=== PATIENT | female | born 1955 | race Caucasian/White ===

== ENCOUNTER 2016-07-30 10:17 | Emergency (ER) | payer OTHER ==
[~2016-07-30] VITALS: Ht 162.6 cm; Wt 49.9 kg
[~2016-07-30 10:17] MED LIST: TOPIRAMATE25 MG PO; TYLENOL #31 TAB PO
[2016-07-30 10:21] VITALS: BP 125/76
--- NOTE | 2016-07-30 10:33 | ED INFLUENZA/URI COMPLAINT ---
History of Present Illness General Chief Complaint: Upper Respiratory Sx/Fever Stated Complaint: COUGH XS 2 WEEKS Source: patient Exam Limitations: no limitations Vital Signs & Intake/Output Vital Signs & Intake/Output Vital Signs Date Time Temp Pulse Resp B/P Pulse O2 O2 Flow FiO2 Ox Delivery Rate 07/30 1052 Room Air Room Air 07/30 1021 98.5 109 20 125/76 98 Room Air Allergies Coded Allergies: NO KNOWN ALLERGIES (11/12/11) Reconcile Medications Albuterol Sulfate (Ventolin Hfa) 90 MCG HFA.AER.AD 2 PUF INH Q4-6 PRN PRN SHORTNESS OF BREATH Amoxicillin/Potassium Clav (Amox-Clav 500-125 MG Tablet) 500 MG-125 MG TABLET 1 CAP PO BID BRONCHITIS Benzonatate (Tessalon Perle) 100 MG CAPSULE 1 CAP PO TID PRN COUGH Benzonatate (Tessalon Perle) 100 MG CAPSULE 1 CAP PO TID PRN COUGH Robitussin AC (Guaifenesin-Codeine Syrup) 200 MG-20 MG/10 ML LIQUID 10 ML PO TID PRN COUGH DO NOT OPERATE MOTOR VEHICLES WITH THIS MEDICATION Topiramate 25 MG TABLET 2 TAB PO DAILY MIGRANE (Reported) Tylenol With Codeine (Tylenol With Codeine #3 Tablet) 300 MG-30 MG TABLET 1 TAB PO Q6 PAIN Triage Note: PT TO ED C/O "I HAVE A COLD" FOR OVER 1 WEEK. C/O HEADACHE AND VOMITING WELL. AFEBRILE. Triage Nurses Notes Reviewed? yes Onset: Gradual Duration: constant Timing: recent history Severity: severe Severity Numbers: 7 HPI: Patient is a 6-year-old female who presents emergency room with a 10 day history of gradual onset of persistent nonproductive cough generalized weakness fatigue body aches headaches made worse with coughing. Due to coughing episodes patient has had a few episodes of nonbloody nonbilious emesis. Patient is able tolerate by mouth. Patient has generalized malaise. Denies any neck pain neck stiffness. Denies any abdominal pain hemoptysis leg swelling shortness of breath chest pain arm pain and jaw pain. Positive sick contacts in which had similar symptoms however he feels better now A shouldn't was evaluated by primary care doctor yesterday and was given a prescription amoxicillin however patient states that the tablets are too big to swallow. (JORJE LE) Past History Travel History Traveled to [place] past 21 day No Medical History Any Pertinent Medical History? none Surgical History Surgical History: non-contributory Psychosocial History Who do you live with Family Services at Home None What is your primary language Swazi Tobacco Use: Never used ETOH Use: denies use Illicit Drug Use: denies illicit drug use Family History Hx Contributory? No (JORJE LE) Review of Systems Review of Systems Constitutional: Reports: see HPI, chills. EENTM: Reports: see HPI. Respiratory: Reports: see HPI, cough. Cardiovascular: Reports: no symptoms. GI: Reports: no symptoms. Genitourinary: Reports: no symptoms. Musculoskeletal: Reports: see HPI. Skin: Reports: no symptoms. Neurological/Psychological: Reports: see HPI, headache. Hematologic/Endocrine: Reports: no symptoms. Immunologic/Allergic: Reports: no symptoms. All Other Systems: Reviewed and Negative (JORJE LE) Physical Exam Physical Exam General Appearance: no apparent distress, alert, comfortable Ears, Nose, Throat: normal ENT inspection, moist mucous membrane, hearing grossly normal, Tympanic normal, pharynx normal Comments: Well-developed well-nourished person in no acute distress HEENT: Normal EENT exam, extraocular motion intact, no nystagmus. Pupils equally round and reactive to light and accommodation. Nose is atraumatic. External auditory canal and Tympanic membranes clear. Pharynx normal. No swelling or edema. Neck: Supple, no lymphadenopathy, normal range of motion without pain or tenderness Back: Nontender, no CVA tenderness. Cardiovascular: Regular rate and rhythms no murmurs rubs or gallops, normal JVP Respiratory: Chest nontender. No respiratory distress.breath sounds clear to auscultation bilaterally Abdomen: Soft, nontender nondistended, no appreciable organomegaly. Normal bowel sounds. No ascites Extremity: No edema, no calf tenderness to palpation, normal and equal pulses. Neuro: Alert oriented x3, motor sensory normal, Skin: No appreciable rash on exposed skin, skin is warm and dry. Psych: Mood and affect is normal, memory and judgment is normal. Core Measures Severe Sepsis Present: No Septic Shock Present: No (JORJE LE) Progress Differential Diagnosis: influenza, meningitis, neutropenia, otitis, pneumonia, pharyngitis, sinusitis Plan of Care: Patient currently is in no apparent distress and can tolerate by mouth was afebrile clear lungs auscultation unremarkable physical exam findings. Due to history of present illness and exam findings patient will be treated for concerns of upper rest for infection. No meningitis signs or symptoms Initial ED EKG: none (JORJE LE) Departure Departure Disposition: HOME OR SELF CARE Condition: Stable Clinical Impression Primary Impression: Upper respiratory infection Secondary Impressions: Headache Referrals: JOANN HAYWOOD (PCP/Family) Additional Instructions: As discussed begin the prescription of amoxicillin as directed for the full course. Begin the prescription for Tessalon Perles and Robitussin with codeine for cough. Begin the prescription of Ventolin for shortness of breath. Begin [id number] Mucinex and Sudafed for congestion. Begin [id number] ibuprofen FOR pain and headaches. If no better on Wednesday follow-up with primary care doctor. Prescriptions waiting at [facility]. If symptoms worsen or if YOU developed a new concerning symptom return to emergency room immediately Departure Forms: Customer Survey General Discharge Information Prescriptions: Current Visit Scripts Benzonatate (Tessalon Perle) 1 CAP PO TID PRN COUGH #21 CAP Amoxicillin/Potassium Clav (Amox-Clav 500-125 MG Tablet) 1 CAP PO BID #20 TAB Benzonatate (Tessalon Perle) 1 CAP PO TID PRN COUGH #21 CAP Robitussin AC (Guaifenesin-Codeine Syrup) 10 ML PO TID PRN COUGH #120 ML DO NOT OPERATE MOTOR VEHICLES WITH THIS MEDICATION Albuterol Sulfate (Ventolin Hfa) 2 PUF INH Q4-6 PRN PRN SHORTNESS OF BREATH #1 INHAL (JORJE LE) PA/LEASE ADMINISTRATION ANALYST Co-Sign Statement Statement: ED Attending supervision documentation- [] I saw and evaluated the patient. I have also reviewed all the pertinent lab results and diagnostic results. I agree with the findings and the plan of care as documented in the PA's/LEASE ADMINISTRATION ANALYST's documentation. [x] I have reviewed the ED Record and agree with the PA's/LEASE ADMINISTRATION ANALYST's documentation. [] Additions or exceptions (if any) to the PAs/LEASE ADMINISTRATION ANALYST's note and plan are summarized below: [] (IRAIDA DAMON DO
[2016-07-30] MEDS ORDERED: VENTOLIN HFA18 GM INH (10:45)
[2016-07-30] MEDS ORDERED: AMOX-CLAV 500-1 EACH PO (10:45)
[2016-07-30] MEDS ORDERED: TESSALON PERLE100 M1 PO (10:45)
[2016-07-30] MEDS ORDERED: GUAIFENESIN-COD10 ML PO (10:45)
== END 2016-07-30 10:53 ==
LOC: ERH 10:17
DX: J06.9 Acute upper respiratory infection, unspecified (principal); R51 Headache